=== PATIENT | male | born 1960 | race Caucasian/White ===

== ENCOUNTER 2017-04-06 15:24 | Emergency (ER) | payer MEDICAID, OTHER ==
[2017-04-06 16:11] VITALS: BP 128/69
--- NOTE | 2017-04-06 16:45 | UC ---
Neck Pain HPI - HPI Summary HPI Summary: The patient comes in today for: 1. Neck and head pain: Onset: last 4-5 days. Palliative/provocative: Ibuprofen helps. Turning the head does not affect it. Quality: Dull at this time, but shooting at times. It will shoot from the right back of his head/neck to the front of the head. Region: Back of the head. Severity: AT this time, he has 3/10 up to 10/10 Time: Some is constant (ache) and there is exacerbations (shooting pain). Associated symptoms: Weakness or numbness: None Previous treatment/evaluation: None. Injury: None. He has been vomiting at times possibly from the pain or overdosing on ibuprofen. He has vomited about 24 times/24 hours. Urination: He states that he has problems with urination. He states that he needs to urinate, but he is not able to do that. The last time he had normal urination was yesterday. He has a history of urinary retention needing a catheter in the past. Ibuprofen: Over the last three days, he has been taking 4-5 doses/day, 1600 to 2000 mg/dose. HE vomited just before I came in to see him. The family states that his mother had a history of aneurysms. They want him checked for the same. He has a history of painful umbilical hernia. * - History of Current Complaint Chief Complaint: UCGeneralIllness Stated Complaint: NECK/BACK OF HEAD PAIN Time Seen by Provider: 04/06/17 16:19 Hx Obtained From: Patient - Allergies/Home Medications Allergies/Adverse Reactions: Allergies Allergy/AdvReac Type Severity Reaction Status Date / Time Prochlorperazine Allergy Severe tongue Verified 04/06/17 16:11 [From Compazine] swelling Home Medications: Home Medications Albuterol HFA INHALER* [Ventolin HFA Inhaler*] 2 puff INH Q4H PRN 04/06/17 [ History Confirmed 04/06/17] Ibuprofen TAB* [Motrin TAB* 800 MG] 1,000 mg PO ONCE 04/06/17 [History Confirmed 04/06/17] Spiriva Inhaler DEVICE* [Tiotropium Inhaler DEVICE*] 2 inh DAILY 04/06/17 [ History Confirmed 04/06/17] PMH/Surg Hx/FS Hx/Imm Hx Previously Healthy: No Cardiovascular History: Cardiac Disease - A-fib, but not on any blood thinner. He has a rate controler medication. Respiratory History: COPD GI/ History: Gastroesophageal Reflux Cancer History: Lung Cancer - Treated in the past year--radiation completed in May of 2016 - Surgical History Surgical History: Yes Surgery Procedure, Year, and Place: eye surgeries as a kid - Family History Known Family History: Negative: Hypertension, Diabetes - Social History Occupation: Employed Full-time Lives: With Family Alcohol Use: Daily Alcohol Amount: 5-6 beers nightly Substance Use Type: None Smoking Status (MU): Former Smoker When Did the Patient Quit Smoking/Using Tobacco: 1 year ago - Immunization History Most Recent Influenza Vaccination: [id number] Review Of Systems Constitutional: Positive: Negative Skin: Positive: Negative Eyes: Positive: Negative ENT: Positive: Negative Respiratory: Positive: Negative Cardiovascular: Positive: Negative Gastrointestinal: Positive: Negative, Vomiting Neurological: Positive: Headache All Other Systems Reviewed And Are Negative: Yes Physical Exam Triage Information Reviewed: Yes Appearance: Well-Appearing, Well-Nourished, Pain Distress - He is animated and smiling at times, but he also has some nausea (from NSAID overuse vs headache?). Vital Signs: Initial Vital Signs Temp 97.8 F 04/06/17 16:05 Pulse 62 04/06/17 16:05 Resp 14 04/06/17 16:05 BP 128/69 04/06/17 16:05 Pulse Ox 97 04/06/17 16:05 Vital Signs Reviewed: Yes Eyes: Positive: Conjunctiva Clear. Negative: Discharge ENT: Positive: Hearing grossly normal. Negative: Pharyngeal erythema, Nasal congestion, TM bulging, TM red, Tonsillar swelling, Tonsillar exudate Dental: Negative: Gross Decay/Caries @, Dental Fracture @ Neck: Positive: Supple, Nontender, No Lymphadenopathy. Negative: Nuchal Rigidity Respiratory: Positive: Chest non-tender, Lungs clear, No respiratory distress, No accessory muscle use. Negative: Rhonchi, Wheezing Cardiovascular: Positive: RRR, No Murmur Abdomen Description: Positive: No Organomegaly, Soft, Other: - He has tenderness around the level of the navel--bladder edge present? He is overweight.. Negative: Nontender - He has some tenderness around the level of the navel. Musculoskeletal: Positive: Strength Intact, ROM Intact Neurological: Positive: Alert, Muscle Tone Normal Psychological: Positive: Age Appropriate Behavior, Consolable Skin: Negative: rashes, breakdown Neck Pain Course/Dx - Course Course Of Treatment: He was given Zofran for nausea. The patient and his family were told of my concerns: 1. NSAID overdosing (6329-2630 mg po 4-5 times a day) leaving to GI toxicity/vomiting and possibly renal failure. 2. Headache (possible right greater occipetal neuropathy vs other causes? 3. Family wants the patient to have an aneurysm study of the head due to his complaint of headache and family history of aneurysms. 4. Vomiting: related to GI NSAID toxicity vs other cause. 5. Rule out renal toxicity. 6. Rule out urinary retention. My concerns were explained to the patient and family, but the patient refuses going to the ER or get a urinary catheter for evaluation of possible urinary retention. He and the family only agree to: 1. Hydrocodone/acetaminophen for pain. 2. Neurotin for possible right greater occipetal neuroapathy. 3. CBC with diff and CMP. They are going to try to get him seen by his primary care provider tomorrow (Dr. Silverman). - Differential Dx/Diagnosis Provider Diagnoses: Headache (greater occipetal neuropathy vs other causes). Rule out urinary retention. Vomiting from NSAID toxicity vs other causes. Rule out renal toxicity from NSAID overdose. Discharge - Discharge Plan Condition: Stable Disposition: AGAINST MEDICAL ADVICE Patient Education Materials: General Headache (ED), Safe Use of NSAIDs (ED), Urinary Retention in Men (ED) Referrals: Philip Silverman, DO [Primary Care Provider] - As Soon As Possible (If you are not going to the ER as recommended, please see your primary care provider as soon as you can. If you get worse, please be re-evaluated again.)
[2017-04-06] MEDS ORDERED: Ondansetron TAB* 4 MG PO ONE (16:51)
[2017-04-06] MEDS ORDERED: Ondansetron ODT TAB* 4 MG PO ONE (16:57)
[2017-04-06] MEDS ORDERED: HYDROcodone/ACETAMIN 5-325 MG* 1 TAB PO ONE (17:35)
[2017-04-06 19:57] LABS: Hematocrit 44 % (42-52); Hemoglobin 14.5 g/dl (14.0-18.0); Mean Corpuscular HGB Conc 33 g/dl (31-36); Mean Corpuscular Hemoglobin 31 pg (27-31); Mean Corpuscular Volume 94 fL (80-94); Mean Platelet Volume 7 um3 (7.4-10.4); Red Blood Count 4.69 10^6/ul (4.0-5.4); Red Cell Distribution Width 14 % (10.5-15); White Blood Count 11.9 10^3/ul (3.5-10.8)
[2017-04-06 20:11] LABS: Albumin 3.7 g/dL (3.2-5.2); BUN/Creatinine Ratio 8.5 (8-20); Calcium 9.4 mg/dL (8.6-10.3); EGFR African American 65.9 (>60); EGFR Non-African American 51.2 (>60); Globulin 3.1 g/dL (2-4); Potassium 3.4 mmol/L (3.5-5.0); Total Bilirubin 0.7 mg/dL (0.2-1.0); Total Protein 6.8 g/dL (6.4-8.9)
--- NOTE | 2017-04-07 10:40 | UC ---
Progress - Progress Note Progress Note: note reviewed. Pt left ama. he had been taking significant nsaids. noted beer 6/ day. Na and K low with elevated cr. this is no c/w ARIES. possible etoh related or dehydration. REgardless, pt need to be seen by pcp, ed or us again within 1- 2 days for re eval. please call and also make sure patient is feeling better.
== END 2017-04-06 17:54 | disposition left against medical advice (07) ==
LOC: UCCORT 15:24
DX: R51 Headache (principal); R11.10 Vomiting, unspecified; M54.2 Cervicalgia; Z88.8 Allergy status to other drugs, medicaments and biological substances; I48.91 Unspecified atrial fibrillation; J44.9 Chronic obstructive pulmonary disease, unspecified; K21.9 Gastro-esophageal reflux disease without esophagitis; Z85.118 Personal history of other malignant neoplasm of bronchus and lung; Z87.891 Personal history of nicotine dependence
CPT/HCPCS: 36415; 80053; 85025; 99212; A9270-GY; G0463

== ENCOUNTER 2017-06-07 15:45 | Emergency (ER) | payer OTHER ==
--- NOTE | 2017-06-07 16:33 | UC ---
Upper Extremity HPI - HPI Summary HPI Summary: 57 YEAR OLD MALE PRESENTS WITH COMPLAINS OF RIGHT DISTAL RADIUS FRACTURE. - History of Current Complaint Stated Complaint: RIGHT WRIST (HAD XR TODAY) Time Seen by Provider: 06/07/17 16:32 Onset/Duration: Sudden Onset Severity Initially: Severe Severity Currently: Severe Pain Scale Used: 0-10 Numeric - 8 Character: Sharp, Throbbing Aggravating Factor(s): Movement, Lifting, Flexion, Extension Associated Signs And Symptoms: Positive: Swelling Related History: Dominant Hand Right - Allergies/Home Medications Allergies/Adverse Reactions: Allergies Allergy/AdvReac Type Severity Reaction Status Date / Time Prochlorperazine Allergy Severe tongue Verified 06/07/17 16:36 [From Compazine] swelling Home Medications: Home Medications Diltiazem CD CAP* [Cardizem CD CAP*] 180 mg PO DAILY 06/07/17 [History Confirmed 06/07/17] Furosemide TAB* [Lasix TAB*] 40 mg PO DAILY 06/07/17 [History Confirmed 06/07/17 ] PMH/Surg Hx/FS Hx/Imm Hx Previously Healthy: Yes - Surgical History Surgical History: Yes Surgery Procedure, Year, and Place: eye surgeries as a kid, Tonsillectomy - Family History Known Family History: Positive: Hypertension Negative: Diabetes - Social History Alcohol Use: Daily Alcohol Amount: 5-6 beers nightly Substance Use Type: None Smoking Status (MU): Former Smoker When Did the Patient Quit Smoking/Using Tobacco: 1 year ago - Immunization History Most Recent Influenza Vaccination: [id number] Review of Systems Constitutional: Negative Skin: Negative Eyes: Negative ENT: Negative Respiratory: Negative Cardiovascular: Negative Gastrointestinal: Negative Genitourinary: Negative Motor: Negative Neurovascular: Negative Musculoskeletal: Other: - RIGHT WRIST SWELLING/PAIN Neurological: Negative Psychological: Negative All Other Systems Reviewed And Are Negative: Yes Physical Exam Triage Information Reviewed: Yes Eye Exam: Normal ENT Exam: Normal Dental Exam: Normal Neck exam: Normal Neck: Positive: 1 Respiratory Exam: Normal Cardiovascular Exam: Normal Abdominal Exam: Normal Musculoskeletal: Positive: Strength Limited @, ROM Limited @, Other: - RIGHT WRIST PAIN/SWELLING Neurological Exam: Normal Psychological Exam: Normal Skin Exam: Normal Upper Extremity Course/Dx - Differential Dx/Diagnosis Provider Diagnoses: RIGHT WRIST PAIN/SWELLING Discharge - Discharge Plan Condition: Stable Disposition: HOME Prescriptions: Acetaminop/Codeine 30 MG TAB* [Tylenol/Codeine 30 MG TAB*] 1 tab PO Q8H PRN #9 tab MDD 3 PRN Reason: Pain - Moderate To Severe Patient Education Materials: Wrist Fracture in Adults (ED) Referrals: Philip Silverman DO [Primary Care Provider] - If Needed Dewayne Torres MD [Medical Doctor] -
[2017-06-07 16:36] VITALS: BP 95/75
== END 2017-06-07 16:58 | disposition home or self-care (01) ==
LOC: UCCORT 15:45
DX: S52.591A Other fractures of lower end of right radius, initial encounter for closed fracture (principal); M25.531 Pain in right wrist; M25.431 Effusion, right wrist; X58.XXXA Exposure to other specified factors, initial encounter; Y93.9 Activity, unspecified; Y92.9 Unspecified place or not applicable; Z87.891 Personal history of nicotine dependence
CPT/HCPCS: 99213; G0463